=== PATIENT | male | born 1990 | race Caucasian/White ===

== ENCOUNTER 2024-02-06 21:45 | Emergency (ER) | payer SELFPAY ==
[~2024-02-06] VITALS: Ht 180.3 cm; Wt 72.6 kg
[2024-02-06] MEDS ORDERED: Ketorolac Tromethamine 30 MG/ML VIAL IM ONE (22:15)
[2024-02-06] MEDS ORDERED: Tdap Vaccine 0.5 ML SYR (Adult Vaccine) IM ONE (22:20)
[2024-02-06] MEDS ORDERED: Acetaminophen/Hydrocodone 5 MG/325 MG TABLET PO ONE (22:55)
[2024-02-06] MEDS ORDERED: HYDROCODONE-AC1 EAC1 PO (23:21)
== END 2024-02-06 23:29 | disposition home or self-care (01) ==
LOC: ED 21:45
DX: S63.280A Dislocation of proximal interphalangeal joint of right index finger, initial encounter (principal); V26.49XA Other motorcycle driver injured in collision with other nonmotor vehicle in traffic accident, initial encounter; Y93.I9 Activity, other involving external motion; Y92.488 Other paved roadways as the place of occurrence of the external cause; Y99.8 Other external cause status